=== PATIENT | male | born 1970 | race Two or more races ===

== ENCOUNTER 2016-11-19 18:35 | Emergency (ER) | payer OTHER ==
[2016-11-19 18:53] VITALS: BP 121/58; PULSE 56; TEMP 98.5; BMI 23.9
[2016-11-19 20:11] LABS: URINE APPEARANCE CLEAR; URINE BILIRUBIN NEGATIVE (NEGATIVE); URINE BLOOD NEGATIVE (NEGATIVE); URINE COLOR LTYELLOW; URINE GLUCOSE (UA) NEGATIVE (NEGATIVE); URINE KETONE NEGATIVE (NEGATIVE); URINE LEUK ESTERASE NEGATIVE (NEGATIVE); URINE NITRITE NEGATIVE (NEGATIVE); URINE PROTEIN NEGATIVE (NEGATIVE); URINE UROBILINOGEN NEGATIVE mg/dL (0.2-1.0)
--- NOTE | 2016-11-19 20:11 | PDOC ---
History of Present Illness - General History Source: Patient Exam Limitations: No Limitations - History of Present Illness Initial Comments: 11/19/16 20:13 The patient is a 46 year old male with no significant past medical history who presents to the ED with right suprapubic pain for an hour. The patient reports a sudden onset of right suprapubic pain radiating intermittently down his right leg. He reports a consant pressure like pain in his suprapubic region and a pulsating pain in his right leg. Patient states he felt nauseous secondary to the onset of pain but denies vomiting. He reports he intermittently gets sporadic pain at night time that last several minutes before resolving. Denies changes in urinary output. Denies dysuria. Denies fevers or chills. Denies any other symptoms <Paul Owens - Last Filed: 11/19/16 20:17> <Pam Bhagat - Last Filed: 11/19/16 20:38> - General Chief Complaint: Pain Stated Complaint: PAIN, ACUTE Time Seen by Provider: 11/19/16 18:58 Past History <Paul Owens - Last Filed: 11/19/16 20:17> - Past Medical History Asthma: No Cardiac Disorders: No CVA: No Disorders: Yes (ENLARGED PROSTATE) HTN: No Hypercholesterolemia: No - Immunization History Immunization Up to Date: Yes - Psycho/Social/Smoking Cessation Hx Anxiety: No Suicidal Ideation: No Smoking Status: No Smoking History: Never smoked Have you smoked in the past 12 months: No Number of Cigarettes Smoked Daily: 0 Information on smoking cessation initiated: No Hx Alcohol Use: Yes Drug/Substance Use Hx: No Substance Use Type: None <Pam Bhagat - Last Filed: 11/19/16 20:38> - Past Medical History Allergies/Adverse Reactions: Allergies Allergy/AdvReac Type Severity Reaction Status Date / Time No Known Allergies Allergy Verified 11/19/16 18:53 Home Medications: Ambulatory Orders Aspirin [ASA -] 81 mg PO DAILY 11/04/11 Naproxen [EC-Naprosyn] 725 mg PO DAILY 07/15/15 Cephalexin Monohydrate [Keflex -] 500 mg PO BID #14 capsule 10/31/15 Ibuprofen 800 mg PO TID #30 tablet 10/31/15 Review of Systems - Review of Systems Able to Perform ROS?: Yes ABD/GI: Yes: Nausea, Other (superpubic pain radiating down leg ) All Other Systems: Reviewed and Negative <Paul Owens - Last Filed: 11/19/16 20:17> *Physical Exam - Vital Signs Last Vital Signs Temp Pulse Resp BP Pulse Ox 98.5 F 56 L 16 121/58 100 11/19/16 18:46 11/19/16 18:46 11/19/16 18:46 11/19/16 18:46 11/19/16 18:46 - Physical Exam Comments: 11/19/16 20:13 GENERAL: Well-appearing, well-nourished. No apparent distress. HEENT: Normocephalic, atraumatic. PERRL, EOM intact. CARDIOVASCULAR: Normal S1, S2. Regular rate and rhythm. PULMONARY: Clear to auscultation bilaterally. ABDOMEN: - mcburneys sign, + right suprapubic pain in inguinal area, no palpable or reproducible masses. Soft, non-distended EXTREMITIES: + 5+ straight leg raise and no reproducible pain on elevation Normal ROM in all four extremities. No gross deformities. MUSCULOSKELETAL: + no spinal tenderness, no sciatic tenderness SKIN: Warm, dry. No rash NEUROLOGICAL: no neural findings, cranial nerves 2-12 intact, no sensory changes. Normal gait <Paul Owens - Last Filed: 11/19/16 20:17> - Vital Signs Last Vital Signs Temp Pulse Resp BP Pulse Ox 98.5 F 56 L 16 121/58 100 11/19/16 18:46 11/19/16 18:46 11/19/16 18:46 11/19/16 18:46 11/19/16 18:46 <Pam Bhagat - Last Filed: 11/19/16 20:38> ED Treatment Course - ADDITIONAL ORDERS Additional order review: Laboratory Results 11/19/16 20:00 Urine Color Ltyellow Urine Appearance Clear Urine pH 5.0 D Urine Protein Negative Urine Glucose (UA) Negative Urine Ketones Negative Urine Blood Negative Urine Nitrite Negative Urine Bilirubin Negative Urine Urobilinogen Negative Ur Leukocyte Esterase Negative <Paul Owens - Last Filed: 11/19/16 20:17> - RADIOLOGY Radiology Studies Ordered: Category Date Time Status HIP-RIGHT [RAD] Stat Radiology 11/19/16 19:37 Taken <Pam Bhagat - Last Filed: 11/19/16 20:38> Medical Decision Making - Medical Decision Making 11/19/16 20:00 Pt Was examined and seen by me. Medical dictation was done by medical Conceirge. Patient on exam had right inguinal tenderness with no reproducible masses or acute findings. Patient had no cva tenderness. Patient concerning for renal colic versus, hip pelvis per versus constipation since patient states goes 3-4 days without moving his bowels but denies abdominal distention and decreased flatulence. Patient ordered for urinalysis and hip and pelvis of the right side. 11/19/16 20:36 Laboratory Tests 11/19/16 20:00 Urine Ketones Negative Urine Blood Negative Ur Leukocyte Esterase Negative Hip and pelvis negative for acute findings. Patient states currently no pain and is able to the ER. Patient be discharged home with recommendations increase his fiber intake as there is noted fecal matter and gas throughout his lower abdomen. <Pam Bhagat - Last Filed: 11/19/16 20:38> *DC/Admit/Observation/Transfer - Attestations Scribe Attestion: 11/19/16 20:14 Documentation prepared by Paul Owens, acting as medical oncology physician for Emergency Dept,Physician <Paul Owens - Last Filed: 11/19/16 20:17> <Pam Bhagat - Last Filed: 11/19/16 20:38> Diagnosis at time of Disposition: Constipation Qualifiers: Constipation type: unspecified constipation type Qualified Code(s): K59.00 - Constipation, unspecified - Discharge Dispostion Disposition: HOME Condition at time of disposition: Improved - Referrals Referrals: Kamryn Garland MD [Primary Care Provider] - - Patient Instructions Printed Discharge Instructions: High-Fiber Diet Additional Instructions: Please include green leafy vegetables and high fiber foods. Please also follow up with your PCP to discuss other symptoms and/or possibly a neurologist. May return to ED if symptoms worsen
== END 2016-11-19 20:49 | disposition home or self-care (01) ==
LOC: JERFT 18:35
DX: K59.00 Constipation, unspecified (principal)
CPT/HCPCS: 73502-TC-RT; 81003; 99281-25

== ENCOUNTER 2017-05-19 11:00 | Emergency (ER) | payer SELFPAY ==
[2017-05-19 11:39] VITALS: BP 122/72; PULSE 70; TEMP 97.4; BMI 25.1
--- NOTE | 2017-05-19 11:44 | PDOC ---
History of Present Illness - General Chief Complaint: Vomiting/Diarrhea Stated Complaint: VOMITING & DIARRHEA Time Seen by Provider: 05/19/17 11:07 History Source: Patient Exam Limitations: No Limitations - History of Present Illness Initial Comments: 05/19/17 11:53 Pt presents to the ED complaining of a 24 hour history of nausea, vomiting and profuse watery diarrhea. Multiple sick contacts. Denies fever or abdominal pain. States that he is unable to tolerate PO. Denies recent international travel. Past History - Past Medical History Allergies/Adverse Reactions: Allergies Allergy/AdvReac Type Severity Reaction Status Date / Time No Known Allergies Allergy Verified 11/19/16 18:53 Home Medications: Ambulatory Orders NK [No Known Home Medication] 05/19/17 Asthma: No Cardiac Disorders: No CVA: No COPD: No Disorders: Yes (ENLARGED PROSTATE) HTN: No Hypercholesterolemia: No - Immunization History Immunization Up to Date: Yes - Suicide/Smoking/Psychosocial Hx Smoking Status: No Smoking History: Never smoked Have you smoked in the past 12 months: No Number of Cigarettes Smoked Daily: 0 Hx Alcohol Use: No Drug/Substance Use Hx: No Substance Use Type: None Review of Systems - Review of Systems Constitutional: No: Symptoms Reported, See HPI, Chills, Diaphoresis, Fever, Loss of Appetite, Night Sweats, Weakness, Weight Stable, Unintentional Wgt. Loss , Unexplained wgt Loss, Other HEENTM: No: Symptoms Reported, See HPI, Eye Pain, Blurred Vision, Tearing, Recent change in vision, Double Vision, Cataracts, Ear Pain, Ocular Prothesis, Ear Discharge, Nose Pain, Nose Congestion, Tinnitus, Nose Bleeding, Hearing Loss , Throat Pain, Throat Swelling, Mouth Pain, Dental Problems, Difficulty Swallowing, Mouth Swelling, Other Cardiac (ROS): No: Symptoms Reported, See HPI, Chest Pain, Edema, Irregular Heart Rate, Lightheadedness, Palpitations, Syncope, Chest Tightness, Other ABD/GI: Yes: Diarrhea, Nausea, Poor Appetite, Vomiting. No: Symptoms Reported, See HPI, Abdominal Distended, Abd. Pain w/ defecation, Blood Streaked Bowels, Constipated, Difficulty Swallowing, Poor Fluid Intake, Rectal Bleeding, Indigestion, Abdominal cramping, Tarry Stools, Other : No: Symptoms Reported, See HPI, Burning, Dysuria, Discharge, Frequency, Flank Pain, Hematuria, Incontinence, Pain, Urgency, Testicular Mass, Testicular Swelling, Lesions, Testicular Pain, Other Musculoskeletal: Yes: Muscle Pain All Other Systems: Reviewed and Negative *Physical Exam - Vital Signs Last Vital Signs Temp Pulse Resp BP Pulse Ox 97.4 F L 70 15 122/72 99 05/19/17 11:06 05/19/17 11:06 05/19/17 11:06 05/19/17 11:06 05/19/17 11:06 - Physical Exam General Appearance: Yes: Nourished, Appropriately Dressed. No: Apparent Distress, Disheveled, Mild Distress, Moderate Distress, Severe Distress, Alcohol on Breath, Intoxicated, Cachetic, Obese, Thin, Other HEENT: positive: Normal ENT Inspection Neck: positive: Supple Respiratory/Chest: positive: Lungs Clear, Normal Breath Sounds Cardiovascular: positive: Regular Rhythm, Regular Rate, S1, S2 Gastrointestinal/Abdominal: positive: Flat, Soft Extremity: positive: Normal Inspection Integumentary: positive: Normal Color, Dry, Warm Neurologic: positive: Fully Oriented, Alert, Normal Mood/Affect ED Treatment Course - LABORATORY CBC & Chemistry Diagram: 05/19/17 11:40 05/19/17 11:40 Medical Decision Making - Medical Decision Making 05/19/17 11:57 Pt presents to the ED complaining of vomiting and profuse watery diarrhea consistent with viral gastroenteritis. Will check labs to rule out severe dehydration or biliary disease. Will give nausea control with zofran. 05/19/17 12:50 Pt feels improved after zofran and IV fluids. Labs show slightly elevated bilirubin, but this is consistent with his prior bilirubin levels and he does not have abdominal pain or tenderness. Will instruct him to follow up with his primary care doctor. He is now tolerating PO. WIll discharge home. *DC/Admit/Observation/Transfer Diagnosis at time of Disposition: Nausea and vomiting Qualifiers: Vomiting type: unspecified Vomiting Intractability: non-intractable Qualified Code(s): R11.2 - Nausea with vomiting, unspecified - Discharge Dispostion Disposition: HOME Condition at time of disposition: Good Admit: No - Referrals Referrals: Kamryn Garland MD [Primary Care Provider] - - Patient Instructions Printed Discharge Instructions: Nausea and Vomiting-Adult Additional Instructions: you have nausea and vomiting that is most likely caused by a virus. you should return immediately to the ED for severe abdominal pain, bloody vomit or stool, if you are vomiting so much that you are unable to tolerate fluids. Your liver function tests were slightly elevated. You should follow up with your primary care doctor for additional testing. Usted tiene nausea y vomito causado por un virus. Debes regressa al ED para dolor de abdomino, vomitando edwin, o si no puedes beber sin vomitar. Los pruebas del igado son un poco altos. Talavera doctor primario debes hacer mas pruebas. - Post Discharge Activity
[2017-05-19] MEDS ORDERED: SODIUM CHLORIDE 0.9% 1000 ML INFUS.BAG IV ONE (11:45)
[2017-05-19] MEDS ORDERED: ONDANSETRON 4 MG/2 ML VIAL IVPUSH ONE (11:45)
[2017-05-19] MEDS ORDERED: ONDANSETRON 4 MG/2 ML VIAL ONE (11:49)
[2017-05-19 12:15] LABS: BASO % 0.1 % (0-2.0); HEMATOCRIT 45.4 % (35.4-49); LYMPH % 9.5 % (8-40); MCH 29.5 pg (25.7-33.7); MEAN CELL VOLUME 89.5 fl (80-96); MEAN PLT VOLUME 9.9 fl (7.5-11.1); MONO % 5.2 % (3.8-10.2); NEUT % 84.2 % (42.8-82.8); PLATELET COUNT 166 K/MM3 (134-434); RBC 5.08 M/mm3 (4.00-5.60); RDW 13.1 % (11.9-15.9); WHITE BLOOD COUNT 6.2 K/mm3 (4.0-10.8)
[2017-05-19 12:17] LABS: ALBUMIN 3.8 g/dl (3.5-5.0); ALK PHOS 56 U/L (32-92); ANION GAP 6 (8-16); BILIRUBIN,TOTAL 1.9 mg/dl (0.2-1.0); BLOOD UREA NITROGEN 18 mg/dl (7-18); CALCIUM 8.5 mg/dl (8.4-10.2); CHLORIDE 104 mmol/L (98-107); CO2 26 mmol/L (22-28); GLUCOSE,RANDOM 92 mg/dl (74-106); SGOT/AST 29 U/L (10-42); SGPT/ALT 44 U/L (10-40); SODIUM 136 mmol/L (136-145); TOT PROT 6.5 g/dl (6.4-8.3)
== END 2017-05-19 13:01 | disposition home or self-care (01) ==
LOC: FER 11:00
PROC: 3E0337Z Introduction of Electrolytic and Water Balance Substance into Peripheral Vein, Percutaneous Approach (ICD-10-PCS; principal; 2017-05-19)
PROC: 3E033GC Introduction of Other Therapeutic Substance into Peripheral Vein, Percutaneous Approach (ICD-10-PCS; 2017-05-19)
DX: R11.2 Nausea with vomiting, unspecified (principal)
CPT/HCPCS: 36415; 80053; 85025; 99282-25

== ENCOUNTER 2018-01-20 22:07 | Emergency (ER) | payer OTHER ==
[2018-01-20 22:28] VITALS: BP 120/78; PULSE 57; TEMP 97.7; BMI 23.9
--- NOTE | 2018-01-20 22:52 | PDOC ---
Attending Attestation - Resident Resident Name: Meaghan Fuentes - ED Attending Attestation I have performed the following: I have examined & evaluated the patient, The case was reviewed & discussed with the resident, I agree w/resident's findings & plan, Exceptions are as noted - HPI HPI: 01/20/18 23:30 47 yo male presents sustained a linear 2 cm laceration to the medial surface of his right second DIP 01/20/18 23:44 - Physicial Exam PE: 01/20/18 23:44 linear flapped laceration along medial surface of rt second finger ,along DIP -sensation is intact -no active bleeding at this time -cap refill < 2 sec -pt can fully extend and flex this finger -no deformity to his fingers or hand - Medical Decision Making 01/20/18 23:47 pt's tetanus is up to date skin closure with dermabond
--- NOTE | 2018-01-20 23:13 | PDOC ---
History of Present Illness - General Chief Complaint: Laceration Stated Complaint: LACERATION Time Seen by Provider: 01/20/18 22:35 - History of Present Illness Initial Comments: 47yo M with no significant PMH presenting with right hand second digit laceration. Patient reports that he was opening a can with a knife when it slipped and cut his second digit. Patient is on ASA but no anticoagulant. Denies LOC, nausea or vomiting. He endorses no acute pain focal to the area of injury. Past History - Past Medical History Allergies/Adverse Reactions: Allergies Allergy/AdvReac Type Severity Reaction Status Date / Time No Known Allergies Allergy Verified 01/20/18 22:20 Home Medications: Ambulatory Orders Azithromycin 250 mg PO DAILY #4 tablet 12/01/17 Asthma: No Cardiac Disorders: No CVA: No COPD: No Disorders: Yes (ENLARGED PROSTATE) HTN: No Hypercholesterolemia: No - Immunization History Immunization Up to Date: Yes - Suicide/Smoking/Psychosocial Hx Smoking Status: No Smoking History: Never smoked Have you smoked in the past 12 months: No Number of Cigarettes Smoked Daily: 0 Information on smoking cessation initiated: No Hx Alcohol Use: No Drug/Substance Use Hx: No Substance Use Type: None Review of Systems - Review of Systems Comments:: Constitutional: no fever, no chills Cardiovascular: no chest pain Respiratory: no cough, no shortness of breath Gastrointestinal: no abdominal pain, no nausea, no vomiting Musculoskeletal: no myalgia, no arthralgia Skin: no rash, +laceration Neurologic: no headache, no dizziness *Physical Exam - Vital Signs Last Vital Signs Temp Pulse Resp BP Pulse Ox 97.7 F 57 L 18 120/78 99 01/20/18 22:20 01/20/18 22:20 01/20/18 22:20 01/20/18 22:20 01/20/18 22:20 - Physical Exam Comments: General: Awake, alert, and fully oriented, in no acute distress Head: no signs of trauma Eyes: EOMI, sclera anicteric ENT: Moist mucus membranes, Lungs: Lungs clear, Normal breath sounds Cardio: Regular rhythm, S1 and S2 present Abdomen: Soft, nontender Extremities: Normal range of motion, Distal pulses present SKIN: Warm, Dry, normal turgor. 2.5cm linear laceration to the R. second digit overlying the lateral and palmar aspect of the distal and middle phalange; neurovascularly intact with good pulse Neurologic: Cranial nerves II through XII grossly intact. Normal speech Procedures - Laceration/Wound Repair Right Lateral Volar Finger 2nd digit Wound Length: to 2.5 cm Wound Explored: clean Wound's Depth, Shape: linear Irrigated w/ Saline: Yes Anesthesia: 2% Lidocaine Amount of Anesthetic (ccs): 2 Wound Repaired With: Dermabond *DC/Admit/Observation/Transfer Diagnosis at time of Disposition: Laceration - Discharge Dispostion Disposition: HOME Condition at time of disposition: Improved - Referrals - Patient Instructions Printed Discharge Instructions: DI for Laceration Repair Additional Instructions: You came to the ED for laceration of your right second finger. The wound was cleaned and you received dermabond. Keep the area clean. RETURN to the ED if you experience: redness or hardness around the wound, pain or tenderness, a red streak, yellow or green discharge oozing from the wound, fever or chills. - Post Discharge Activity
== END 2018-01-20 23:44 | disposition home or self-care (01) ==
LOC: JER 22:07
PROC: 0HQFXZZ Repair Right Hand Skin, External Approach (ICD-10-PCS; principal; 2018-01-20)
DX: S61.210A Laceration without foreign body of right index finger without damage to nail, initial encounter (principal); W26.0XXA Contact with knife, initial encounter; Y93.G1 Activity, food preparation and clean up; Y92.030 Kitchen in apartment as the place of occurrence of the external cause; Y99.8 Other external cause status
CPT/HCPCS: 12001; 99282-25

== ENCOUNTER 2018-04-10 08:13 | Emergency (ER) | payer OTHER ==
[2018-04-10 08:21] VITALS: BP 140/80; PULSE 69; TEMP 98.2; BMI 23.9
[2018-04-10] MEDS ORDERED: ALBUTEROL SO4 2.5/IPRATROPIUM 0.5 INH SOL 3 ML VIAL.NEB. NEB ONE (09:02)
--- NOTE | 2018-04-10 09:13 | PDOC ---
History of Present Illness - General Chief Complaint: Chest Pain Stated Complaint: CHEST PAIN Time Seen by Provider: 04/10/18 09:01 History Source: Patient Exam Limitations: No Limitations - History of Present Illness Initial Comments: 04/10/18 09:03 Patient came for evaluation of chest pain worse with deep inspiration that started this morning. States woke up the middle the night with arm pain that went across chest but this morning states cough ensued and raspy throat. [place] that he was feverish but did not take temperature. 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 Denies any chest pain or palpitations, no history of cardiac disease. States took an aspirin this morning which helped resolve some of his symptoms allowing him to return to sleep but woke up this morning still feeling uncomfortable. Timing/Duration: reports: this morning Severity: reports: mild Past History - Travel Traveled outside of the country in the last 30 days: No Close contact w/someone who was outside of country & ill: No - Past Medical History Allergies/Adverse Reactions: Allergies Allergy/AdvReac Type Severity Reaction Status Date / Time No Known Allergies Allergy Verified 04/10/18 08:17 Home Medications: Ambulatory Orders Albuterol Sulfate Inhaler - [Ventolin HFA Inhaler -] 1 - 2 inh PO Q4H #1 inhaler 04/10/18 Asthma: No Cardiac Disorders: No CVA: No COPD: No Disorders: Yes (ENLARGED PROSTATE) HTN: No Hypercholesterolemia: No - Immunization History Immunization Up to Date: Yes - Suicide/Smoking/Psychosocial Hx Smoking Status: No Smoking History: Never smoked Have you smoked in the past 12 months: No Number of Cigarettes Smoked Daily: 0 Information on smoking cessation initiated: No Hx Alcohol Use: No Drug/Substance Use Hx: No Substance Use Type: None Review of Systems - Review of Systems Able to Perform ROS?: Yes Is the patient limited Sami proficient: Yes Constitutional: Yes: Symptoms Reported, See HPI, Chills, Fever, Malaise HEENTM: Yes: Symptoms Reported, See HPI Respiratory: Yes: Symptoms reported, See HPI, Cough, Other (pleuritic chest pain ) ABD/GI: No: Symptoms Reported : No: Symptoms Reported Musculoskeletal: Yes: Symptoms Reported, See HPI, Muscle Pain Integumentary: Yes: See HPI. No: Symptoms Reported All Other Systems: Reviewed and Negative *Physical Exam - Vital Signs Last Vital Signs Temp Pulse Resp BP Pulse Ox 98.2 F 69 20 140/80 98 04/10/18 08:14 04/10/18 08:14 04/10/18 08:14 04/10/18 08:14 04/10/18 08:14 - Physical Exam General Appearance: Yes: Nourished, Appropriately Dressed, Apparent Distress, Mild Distress HEENT: positive: EOMI, MAHSA, Normal ENT Inspection, TMs Normal, Pharynx Normal, Rhinorrhea, Sinus Tenderness. negative: Normal Voice (raspy voice with congestion) Neck: positive: Supple, Lymphadenopathy (R), Lymphadenopathy (L). negative: Tender Respiratory/Chest: positive: Lungs Clear (but mildly diminished). negative: Normal Breath Sounds Gastrointestinal/Abdominal: positive: Flat, Soft. negative: Normal Bowel Sounds Musculoskeletal: positive: Normal Inspection Extremity: positive: Normal Capillary Refill, Normal Inspection Integumentary: positive: Normal Color, Dry, Warm, Pale Neurologic: positive: attendant lodging facilities II-XII NML intact, Fully Oriented, Alert, Normal Mood/ Affect, Normal Response, Motor Strength 5/5 Moderate Sedation - Procedure Monitoring Vital Signs: Procedure Monitoring Vital Signs Temperature 98.2 F 04/10/18 08:14 Pulse Rate 69 04/10/18 08:14 Respiratory Rate 20 04/10/18 08:14 Blood Pressure 140/80 04/10/18 08:14 O2 Sat by Pulse Oximetry (%) 98 04/10/18 08:14 Heart Score/ECG Review - ECG Intrepretation Rhythm: Regular Rhythm - ECG Impressions Normal ECG: Yes Non-specific ST Elevation: No Progress Note - Progress Note Progress Note: Upper respiratory infection, cleared somewhat with albuterol neb. Influenza testing is negative will discharge with ALbuterol HFA and have F/U with PMD *DC/Admit/Observation/Transfer Diagnosis at time of Disposition: URI, acute - Discharge Dispostion Disposition: HOME Condition at time of disposition: Stable Decision to Admit order: No - Prescriptions Prescriptions: Albuterol Sulfate Inhaler - [Ventolin HFA Inhaler -] 1 - 2 inh PO Q4H #1 inhaler - Referrals Referrals: Kamryn Garland MD [Primary Care Provider] - - Patient Instructions Printed Discharge Instructions: DI for Viral Upper Respiratory Infection -- Adult Additional Instructions: Rest, drink lots of fluids: Teas, water, soups, Pedialyte Saltwater gargles Steamy showers/seem to face break up mucus Avoid contact with others until fevers and cough resolved Lots of handwashing and good hygiene Continue [id number] medications for symptomatic relief Tylenol or Motrin for fever and pain Continue albuterol nebulizers every 4-6 hours for the next 2 days then as needed for continued cough Followup with private physician in one to 2 days Return to emergency department / pediatric hospital for worsened symptoms, fevers, dehydration - Post Discharge Activity Forms/Work/School Notes: Back to Work
--- NOTE | 2018-04-10 11:26 | EKG ---
Test Reason : Blood Pressure : / mmHG Vent. Rate : 065 BPM Atrial Rate : 065 BPM P-R Int : 150 ms QRS Dur : 112 ms QT Int : 404 ms P-R-T Axes : 060 022 010 degrees QTc Int : 420 ms NORMAL SINUS RHYTHM INCOMPLETE RIGHT BUNDLE BRANCH BLOCK NONSPECIFIC T WAVE ABNORMALITY ABNORMAL ECG WHEN COMPARED WITH ECG OF 15-JUL-2015 01:26, NO SIGNIFICANT CHANGE WAS FOUND Confirmed by TRISH PHELPS, ARI ([id number]) on 04/10/2018 11:25:44 AM Referred By: Confirmed By:ARI CHAMBERS MD
== END 2018-04-10 09:48 | disposition home or self-care (01) ==
LOC: JER 08:13 → JERFT 08:13
PROC: 3E0F7GC Introduction of Other Therapeutic Substance into Respiratory Tract, Via Natural or Artificial Opening (ICD-10-PCS; principal; 2018-04-10)
DX: J06.9 Acute upper respiratory infection, unspecified (principal)
CPT/HCPCS: 87804; 93005; 93010; 99281-25

== ENCOUNTER 2018-11-24 07:23 | Emergency (ER) | payer SELFPAY ==
[2018-11-24 07:50] VITALS: BP 126/72; PULSE 85; TEMP 99.1; BMI 23.9
--- NOTE | 2018-11-24 08:21 | PDOC ---
History of Present Illness - General Chief Complaint: Cold Symptoms Stated Complaint: FEVER,CONGESTION Time Seen by Provider: 11/24/18 08:05 History Source: Patient Exam Limitations: No Limitations Past History - Travel Traveled outside of the country in the last 30 days: No Close contact w/someone who was outside of country & ill: No - Past Medical History Allergies/Adverse Reactions: Allergies Allergy/AdvReac Type Severity Reaction Status Date / Time No Known Allergies Allergy Verified 11/24/18 07:47 Home Medications: Ambulatory Orders Albuterol Sulfate Inhaler - [Ventolin HFA Inhaler -] 1 - 2 inh PO Q4H #1 inhaler 04/10/18 Azithromycin [Zithromax 250mg Tablets -] 250 mg PO UTDICT #6 tab 11/24/18 Asthma: No Cardiac Disorders: No CVA: No COPD: No Disorders: Yes (ENLARGED PROSTATE) HTN: No Hypercholesterolemia: No - Immunization History Immunization Up to Date: Yes - Suicide/Smoking/Psychosocial Hx Smoking Status: No Smoking History: Never smoked Have you smoked in the past 12 months: No Number of Cigarettes Smoked Daily: 0 Hx Alcohol Use: No Drug/Substance Use Hx: No Substance Use Type: None Review of Systems - Review of Systems Able to Perform ROS?: Yes Is the patient limited Hungarian proficient: No *Physical Exam - Vital Signs Last Vital Signs Temp Pulse Resp BP Pulse Ox 99.1 F 85 18 126/72 97 11/24/18 07:48 11/24/18 07:48 11/24/18 07:48 11/24/18 07:48 11/24/18 07:48 *DC/Admit/Observation/Transfer Diagnosis at time of Disposition: URI, acute - Discharge Dispostion Disposition: HOME Condition at time of disposition: Stable Decision to Admit order: No - Prescriptions Prescriptions: Azithromycin [Zithromax 250mg Tablets -] 250 mg PO UTDICT #6 tab - Referrals Referrals: Kamryn Garland MD [Primary Care Provider] - - Patient Instructions Printed Discharge Instructions: DI for Viral Upper Respiratory Infection -- Adult Additional Instructions: You have an upper respiratory infection, or the common cold. Your strep testing was negative today. Please take Motrin 800 mg every 8 hours as needed for pain not to exceed 3000 mg a day. Drink plenty of fluids. Cough drops and warm tea may help your symptoms as well. Please follow up with her primary care doctor this week. Return to the emergency department if you have difficulty breathing, shortness of breath, worsening pain, nausea, vomiting or if you have any changes in your symptoms. Tiene pantera infeccin de las vas respiratorias superiores o resfriado comn. [employer] prueba de estreptococo fue negativa hoy. Marie el paquete Z segn las indicaciones. Tiene diarrea. Evite todos los productos lcteos hasta 48 horas despus de que el vmito / diarrea se haya resuelto. Coma pantera dieta blanda que incluya salsa de manzana, tostadas, pltanos y arroz simple [place] muchos lquidos, incluidos pedialyte, jugos diluidos y agua. Gregory un seguimiento con cornell mdico de atencin primaria esta semana Regrese al servicio de urgencias si desarrolla fiebre, dolor abdominal, empeoramiento del vmito o si tiene algn cambio en arvind sntomas. Print Language: LATVIAN - Post Discharge Activity
[2018-11-24] MEDS ORDERED: IBUPROFEN 400 MG TABLET (FP) PO ONE ×2 (08:51→09:05)
[2018-11-24] MEDS ORDERED: ACETAMINOPHEN 325 MG TABLET (FP) PO ONE (08:51)
[2018-11-24] MEDS ORDERED: ACETAMINOPHEN 325 MG TABLET (FP) ONE (09:05)
== END 2018-11-24 10:07 | disposition home or self-care (01) ==
LOC: JERFT 07:23
DX: J06.9 Acute upper respiratory infection, unspecified (principal); B97.89 Other viral agents as the cause of diseases classified elsewhere
CPT/HCPCS: 87070; 87880; 99281-25

== ENCOUNTER 2019-05-25 09:55 | Emergency (ER) | payer OTHER ==
[2019-05-25 10:10] VITALS: BP 125/87; PULSE 57; TEMP 98.5; BMI 23.6
[2019-05-25] MEDS ORDERED: ACETAMINOPHEN 1000 MG/100 ML VIAL (NON FORMULARY) IVPB ONE (10:21)
[2019-05-25] MEDS ORDERED: SODIUM CHLORIDE 0.9% 500 ML INFUS.BAG IV ONE (10:21)
--- NOTE | 2019-05-25 10:21 | PDOC ---
History of Present Illness - General Chief Complaint: Pain Stated Complaint: LEFT FLANK PAIN Time Seen by Provider: 05/25/19 10:01 - History of Present Illness Initial Comments: Edgar Mendenhall is a 49yo man with no chronic medical conditions, h/o prior kidney stones, who presents with left flank pain for 2-3 days that has now moved to include the left upper abdomen. The pain has also He has not noticed any fevers/chills, dysuria, hematuria, frequency, nausea/vomiting, diarrhea, or other symptoms. He states that the pain is worse with movement. He coughed this morning, and the pain was so severe that he could not deal with it at home and came to the ED. He has not taken any pain medication today. He says that this does not feel exactly like his previous kidney stones as the pain today is more severe. He does not remember any injury or heavy lifting prior to onset of pain , but he is not sure. Past History - Past Medical History Allergies/Adverse Reactions: Allergies Allergy/AdvReac Type Severity Reaction Status Date / Time No Known Allergies Allergy Verified 05/25/19 09:56 Home Medications: Ambulatory Orders Albuterol Sulfate Inhaler - [Ventolin HFA Inhaler -] 1 - 2 inh PO Q4H #1 inhaler 04/10/18 Azithromycin [Zithromax 250mg Tablets -] 250 mg PO UTDICT #6 tab 11/24/18 Asthma: No Cardiac Disorders: No CVA: No COPD: No Disorders: Yes (ENLARGED PROSTATE) HTN: No Hypercholesterolemia: No Kidney Stones: Yes - Immunization History Immunization Up to Date: Yes - Psycho Social/Smoking Cessation Hx Smoking Status: No Smoking History: Never smoked Have you smoked in the past 12 months: No Number of Cigarettes Smoked Daily: 0 Information on smoking cessation initiated: No Hx Alcohol Use: ("social") Drug/Substance Use Hx: No Substance Use Type: None Review of Systems - Review of Systems Comments:: General: No fevers, no chills, no weight or appetite change, no malaise HEENT: No changes in vision, no changes in hearing, no congestion, no sore throat CV: No chest pain, no palpitations, no LE edema Pulm: No SOB, no cough, no wheezing GI: No nausea or vomiting, no change in bowel habits, no melena : No frequency, no urgency, no dysuria. +L flank pain Musc: No back pain, no joint swelling, no recent injury Skin: No rash, no lesions, no erythema Endo: No excessive thirst, no heat/cold intolerance Heme: No unusual bruising or bleeding, no swollen glands Neuro: No syncope, no numbness/tingling, no focal weakness Vasc: No claudication Psych: No recent change in mood, no SI or HI *Physical Exam - Vital Signs Last Vital Signs Temp Pulse Resp BP Pulse Ox 98.5 F 57 L 18 125/87 100 05/25/19 09:55 05/25/19 09:55 05/25/19 09:55 05/25/19 09:55 05/25/19 09:55 - Physical Exam General: Uncomfortable but in no acute distress HEENT: Atraumatic, PERRL, EOMI, MMM, voice normal, normal neck ROM Cards: RRR, no murmur appreciated Pulm: Comfortable on room air, clear to auscultation bilaterally Abd: Soft, nondistended. Mild LUQ TTP. No rigidity or guarding. : +Left CVA TTP Ext: Atraumatic. No LE edema. ROM intact. WWP Skin: Normal color, no rashes or lesions Neuro: A&Ox3, CN grossly intact, normal speech, motor/sensory grossly intact and symmetric Psych: Mood appropriate to situation ED Treatment Course - LABORATORY CBC & Chemistry Diagram: 05/25/19 10:30 05/25/19 10:30 Medical Decision Making - Medical Decision Making 05/25/19 10:21 Edgar Mendenhall is a 49yo man with no chronic medical conditions, h/o prior kidney stones, who presents with left flank pain for 2-3 days that has now moved to include the left upper abdomen. He denies any associated symptoms, urinary complaints, or history of injury. - Most likely kidney stone or musculoskeletal pain. Less likely pyelonephritis given no nausea, vomiting, fever. Cannot exclude AAA, PUD, gastritis, though less likely given no associated symptoms or h/o HTN or smoking. Unlikely ACS given no chest pain, SOB or exertional component, or comorbidities - CBC, CMP, UA, UCx - IVF, acetaminophen - Will likely need CT pending UA and creatinine 05/25/19 12:04 - Labs reviewed, no concerning abnormalities - Pt has not been able to provide urine sample - CT abd/pelvis completed for evaluation. Reviewed in ED. Stone noted at [facility]. Radiology report pending - Will most likely be able to d/c home with urology follow up. 05/25/19 13:20 - CT without definitive stone per radiology report - Pain may be musculoskeletal - Discussed home pain control, follow up with PMD and urology. Pt understands and agrees with the plan, feels comfortable going home. Discussed with Dr Medina Fairbanks PGY2 Discharge - Discharge Information Problems reviewed: Yes Clinical Impression/Diagnosis: Kidney stone on left side Condition: Stable Disposition: HOME - Follow up/Referral Referrals: Kamryn Garland MD [Primary Care Provider] - Cesar Parks MD [Staff Physician] - - Patient Discharge Instructions Patient Printed Discharge Instructions: DI for Musculoskeletal Pain Additional Instructions: Discharge Instructions: You were seen in the emergency department for back pain. This is most likely due to a muscle strain. Home Care and Follow Up: - You may use over the counter medications as needed for pain at home. 650- 1000mg acetaminophen (Tylenol) or 600mg ibuprofen (Motrin or Advil) can be used every 6-8 hours. If needed for continued pain, these medications may be alternated every 3-4 hours. For example, if you take ibuprofen at 9am, you may take acetaminophen at noon, ibuprofen at 3pm, etc. - It is strongly recommended that you take ibuprofen with food to help prevent stomach irritation. - You may buy a numbing patch that contains lidocaine (the patch is 4% lidocaine ) that can be placed over the areas of greatest pain. The lidocaine patch may be placed for 12 hours then removed for 12 hours. - Try using an ice pack for 20 minutes every hour or a heating pad for additional pain control. These should NOT be used over the lidocaine patch, but you may place them over the areas of pain while the patch is off. - Do not stop moving around. As much as you can tolerate, continue to do light exercise and stretching exercises. Increase your activity level as much as you can tolerate daily. - If your pain does not improve over the next week, please see your regular doctor for follow up. - Seek immediate medical care if you have significant worsening of your symptoms , inability to move, nausea/vomiting or change in bowel habits, fever to 101F or higher, or any other medical emergency. - Post Discharge Activity
[2019-05-25] MEDS ORDERED: ACETAMINOPHEN INJECTION 100 ML IVPB ONE (10:23)
[2019-05-25 10:42] LABS: BASO % 1.4 % (0-2.0); EOS % 0.7 % (0-4.5); HEMATOCRIT 47.7 % (35.4-49); HEMOGLOBIN 15.8 GM/dl (11.7-16.9); LYMPH % 17.9 % (8-40); MCH 30.5 pg (25.7-33.7); MCHC 33.1 g/dl (32.0-35.9); MEAN PLT VOLUME 9.2 fl (7.5-11.1); MONO % 5.5 % (3.8-10.2); NEUT % 74.5 % (42.8-82.8); PLATELET COUNT 234 K/MM3 (134-434); RBC 5.19 M/mm3 (4.00-5.60); RDW 13.4 % (11.9-15.9); WHITE BLOOD COUNT 9.9 K/mm3 (4.0-10.8)
--- NOTE | 2019-05-25 10:44 | PDOC ---
Attending Attestation - Resident Resident Name: Aleksandra Fairbanks - ED Attending Attestation I have performed the following: I have examined & evaluated the patient, The case was reviewed & discussed with the resident, I agree w/resident's findings & plan, Exceptions are as noted - HPI HPI: 05/25/19 18:16 49 years old no past medical history presents with left flank pain pain for 2 to 3 days worse with movement history of kidney stones - Physicial Exam PE: 05/25/19 18:16 Works in the kitchen Vitals: Triage Vital signs reviewed General Appearance: No acute distress, well nourished well developed, Cardiac: Regular rate and rhythym, no murmurs, no rubs, no gallops, Lungs: Clear to auscultation bilateral, good air movement bilaterally, Abdomen: Soft, non distended, normal bowel sounds, non tender to palpation MSK:left-sided CVA tenderness to palpation Extremities: Full range of motion to all extremities, no cyanosis, clubbing, or edema Skin: Warm and dry, no rashes or lesions, no rash, no petechiae Psych: Normal mood, normal affect - Medical Decision Making 05/25/19 18:24 49 years old labs normal urine normal status post pain meds patient feels much better CT demonstrates no acute pathology History examination is consistent with musculoskeletal back discomfort very reproducible worse with change in position Patient will follow-up with his primary care doctor this week or return to ED for any severe worsening symptoms or for any concerns.
[2019-05-25 10:53] LABS: ALBUMIN 3.8 g/dl (3.4-5.0); BILIRUBIN,TOTAL 1.8 mg/dl (0.2-1); CALCIUM 8.9 mg/dl (8.5-10); POTASSIUM 4.2 mmol/L (3.5-5.1)
[2019-05-25] MEDS ORDERED: KETOROLAC TROMETHAMINE 30 MG/1 ML VIAL IVPUSH ONE (12:06)
[2019-05-25] MEDS ORDERED: KETOROLAC TROMETHAMINE 30 MG/1 ML VIAL ONE (12:09)
== END 2019-05-25 13:30 | disposition home or self-care (01) ==
LOC: FER 09:55
PROC: 3E033NZ Introduction of Analgesics, Hypnotics, Sedatives into Peripheral Vein, Percutaneous Approach (ICD-10-PCS; principal; 2019-05-25)
PROC: 3E0333Z Introduction of Anti-inflammatory into Peripheral Vein, Percutaneous Approach (ICD-10-PCS; 2019-05-25)
DX: N20.0 Calculus of kidney (principal)
CPT/HCPCS: 36415; 74176-TC; 80053; 81003; 81015; 85025; 87086; 96374; 96375; 99284-25; J0131

== ENCOUNTER 2019-05-27 10:04 | Emergency (ER) | payer OTHER ==
[2019-05-27 10:31] VITALS: BP 122/80; PULSE 65; TEMP 98.4; BMI 24.7
[2019-05-27] MEDS ORDERED: KETOROLAC TROMETHAMINE 30 MG/1 ML VIAL IM ONE (11:37)
[2019-05-27] MEDS ORDERED: METHOCARBAMOL 500 MG TABLET PO ONE (11:37)
[2019-05-27] MEDS ORDERED: KETOROLAC TROMETHAMINE 30 MG/1 ML VIAL ONE (11:40)
[2019-05-27] MEDS ORDERED: METHOCARBAMOL 500 MG TABLET ONE (11:40)
--- NOTE | 2019-05-27 11:42 | PDOC ---
History of Present Illness - General Chief Complaint: Injury Stated Complaint: LOWER BACK PAIN Time Seen by Provider: 05/27/19 11:32 History Source: Patient Exam Limitations: Clinical Condition - History of Present Illness Initial Comments: 05/27/19 11:38 Patient with no significant past medical history present with complaint of persistent left lower back pain status post heavy lifting 3 days ago which patient reports felt a stretch in the back after lifting but had no pain until the following day when he started having pain. Patient was seen in transfer emergency room 2 days ago for symptoms and blood work and CT done was normal results and discharged with naproxen but patient did not take it. Patient reported was seen by neurology yesterday for symptoms and advised to take naproxen but did not take it today as reports still having pain. Patient reported increased pain with movement. Denies numbness or tingling sensation or radiculopathy. Occurred: reports: other (3 days ) Past History - Past Medical History Allergies/Adverse Reactions: Allergies Allergy/AdvReac Type Severity Reaction Status Date / Time No Known Allergies Allergy Verified 05/25/19 09:56 Home Medications: Ambulatory Orders Albuterol Sulfate Inhaler - [Ventolin HFA Inhaler -] 1 - 2 inh PO Q4H #1 inhaler 04/10/18 Azithromycin [Zithromax 250mg Tablets -] 250 mg PO UTDICT #6 tab 11/24/18 Methocarbamol [Robaxin -] 500 mg PO BID PRN #14 tablet 05/27/19 Methylprednisolone [Medrol Dose Edwin] 4 mg PO ASDIR #21 tablet 05/27/19 Asthma: No Cardiac Disorders: No CVA: No COPD: No Disorders: Yes (ENLARGED PROSTATE) HTN: No Hypercholesterolemia: No Kidney Stones: Yes - Immunization History Immunization Up to Date: Yes - Psycho Social/Smoking Cessation Hx Smoking Status: No Smoking History: Never smoked Have you smoked in the past 12 months: No Number of Cigarettes Smoked Daily: 0 Information on smoking cessation initiated: No Hx Alcohol Use: No Drug/Substance Use Hx: No Substance Use Type: None Review of Systems - Review of Systems Able to Perform ROS?: Yes Is the patient limited [place] proficient: No Constitutional: No: Chills, Fever, Malaise HEENTM: No: Symptoms Reported, See HPI, Eye Pain, Blurred Vision, Tearing, Recent change in vision, Double Vision, Cataracts, Ear Pain, Ocular Prothesis, Ear Discharge, Nose Pain, Nose Congestion, Tinnitus, Nose Bleeding, Hearing Loss , Throat Pain, Throat Swelling, Mouth Pain, Dental Problems, Difficulty Swallowing, Mouth Swelling, Other Respiratory: No: Symptoms reported, See HPI, Cough, Orthopnea, Shortness of Breath, SOB with Exertion, SOB at Rest, Stridor, Wheezing, Productive cough, Hemoptysis, Other Cardiac (ROS): No: Symptoms Reported, See HPI, Chest Pain, Edema, Irregular Heart Rate, Lightheadedness, Palpitations, Syncope, Chest Tightness, Other ABD/GI: No: Symptoms Reported, See HPI, Nausea, Vomiting Musculoskeletal: Yes: Symptoms Reported, See HPI, Back Pain, Muscle Pain (left side back pain) All Other Systems: Reviewed and Negative *Physical Exam - Vital Signs Last Vital Signs Temp Pulse Resp BP Pulse Ox 98.4 F 65 16 122/80 97 05/27/19 10:29 05/27/19 10:29 05/27/19 10:29 05/27/19 10:29 05/27/19 10:29 - Physical Exam 05/27/19 11:40 GENERAL: Well developed, well nourished. Awake and alert in mild acute distress. CARDIOVASCULAR: Regular rate and rhythm. No murmurs, rubs, or gallops. PULMONARY: No evidence of respiratory distress. Lungs clear to auscultation bilaterally. No wheezing, rales or rhonchi. ABDOMINAL: Soft. Non-tender. Non-distended. No rebound or guarding. No organomegaly. Normoactive bowel sounds MUSCULOSKELETAL : Moderate tenderness to left paravertebral muscle of lumbar spine of L2-L5. No midline tenderness. No radiculopathy SKIN: Warm and dry. Normal capillary refill. No rashes. No jaundice. NEUROLOGICAL: Alert, awake, appropriate. No motor deficits in the lower extremities. Gait is normal without ataxia. PSYCHIATRIC: Cooperative. Good eye contact. Appropriate mood and affect. General Appearance: Yes: Nourished, Appropriately Dressed, Mild Distress Medical Decision Making - Medical Decision Making 05/27/19 11:39 Patient with no significant past medical history present with complaint of persistent left lower back pain status post heavy lifting 3 days ago which patient reports felt a stretch in the back after lifting but had no pain until the following day when he started having pain. Patient was seen in transfer emergency room 2 days ago for symptoms and blood work and CT done was normal results and discharged with naproxen but patient did not take it. Patient reported was seen by neurology yesterday for symptoms and advised to take naproxen but did not take it today as reports still having pain. Patient reported increased pain with movement. Denies numbness or tingling sensation or radiculopathy. Exam significant for moderate tenderness to left paravertebral muscle of lumbar spine of L2-L5. No midline tenderness. Patient symptoms likely back strain. Toradol 30 mg IM ordered for pain and Robaxin 1000mg ordered for spasm. Patient stable for discharge to continue prescribed naproxen medication and will add Robaxin muscle relaxer for pain with orthopedics follow-up as needed Discharge - Discharge Information Problems reviewed: Yes Clinical Impression/Diagnosis: Lumbago without sciatica Qualifiers: Chronicity: acute Back pain laterality: left Qualified Code(s): M54.5 - Low back pain Condition: Stable Disposition: HOME - Admission No - Additional Discharge Information Prescriptions: Methocarbamol [Robaxin -] 500 mg PO BID PRN #14 tablet PRN Reason: Back Pain Methylprednisolone [Medrol Dose Edwin] 4 mg PO ASDIR #21 tablet - Follow up/Referral Referrals: Kamryn Garland MD [Primary Care Provider] - - Patient Discharge Instructions Patient Printed Discharge Instructions: DI for Back Strain or Sprain Additional Instructions: Take prescribed medication as prescribed for pain as symptoms likely from muscle strain. Apply heat to lower back 2-3 times a day as needed for pain. Follow-up with orthopedics if symptoms persist for more than 3 days - Post Discharge Activity
== END 2019-05-27 11:48 | disposition home or self-care (01) ==
LOC: JERFT 10:04
PROC: 3E0233Z Introduction of Anti-inflammatory into Muscle, Percutaneous Approach (ICD-10-PCS; principal; 2019-05-27)
DX: M54.5 Low back pain (principal); N40.0 Benign prostatic hyperplasia without lower urinary tract symptoms; N20.0 Calculus of kidney
CPT/HCPCS: 99281-25

== ENCOUNTER 2021-07-20 19:50 | Inpatient (IN) | payer OTHER ==
[2021-07-20 20:02] VITALS: BP 147/80; PULSE 81; TEMP 98; BMI 25.4
[2021-07-20] MEDS ORDERED: ACETAMINOPHEN 325 MG TABLET (FP) PO ONE (21:03)
[2021-07-20] MEDS ORDERED: ACETAMINOPHEN 325 MG TABLET (FP) ONE (21:05)
[2021-07-20 21:16] LABS: BASO % 0.5 % (0-2.0); EOS % 1.4 % (0-4.5); HEMATOCRIT 40.9 % (35.4-49); LYMPH % 28.7 % (8-40); MCH 30.1 pg (25.7-33.7); MCHC 34.2 g/dl (32.0-35.9); MEAN CELL VOLUME 87.9 fl (80-96); MEAN PLT VOLUME 8.1 fl (7.5-11.1); MONO % 7.8 % (3.8-10.2); NEUT % 61.6 % (42.8-82.8); PLATELET COUNT 193 10^3/uL (134-434); RBC 4.65 M/mm3 (4.00-5.60)
[2021-07-20 21:25] LABS: INR 0.92 (0.83-1.09); PROTHROMBIN TIME (PATIENT) 10.6 SEC (9.7-13.0)
[2021-07-20 21:42] LABS: CALCIUM 8.4 mg/dL (8.5-10.1)
[2021-07-20 21:43] LABS: ALBUMIN 3.2 g/dl (3.4-5.0); BLOOD UREA NITROGEN 15.4 mg/dL (7-18)
[2021-07-20 21:46] LABS: CREATININE 1.4 mg/dL (0.55-1.3)
[2021-07-20 21:47] LABS: BILIRUBIN,TOTAL 0.5 mg/dL (0.2-1); TOT PROT 6.7 g/dl (6.4-8.2)
[2021-07-20] MEDS ORDERED: ASPIRIN 81 MG CHEWABLE TABLETS PO ONE (22:08)
[2021-07-20] MEDS ORDERED: SODIUM CHLORIDE 0.9% 500 ML INFUS.BAG IV ONE (22:09)
[2021-07-20] MEDS ORDERED: ASPIRIN 81 MG CHEWABLE TABLETS ONE (23:02)
== END 2021-07-23 02:30 | disposition left against medical advice (07) | DRG 469 ==
LOC: JER 19:50 → JERBED 07-21 00:22
PROVIDERS: ADMIT Hospitalist; ATTEND Hospitalist
DX: N17.9 Acute kidney failure, unspecified (principal); R07.89 Other chest pain; E78.5 Hyperlipidemia, unspecified; I45.10 Unspecified right bundle-branch block; Z53.29 Procedure and treatment not carried out because of patient's decision for other reasons; N40.0 Benign prostatic hyperplasia without lower urinary tract symptoms
CPT/HCPCS: 36415; 71046-TC-FY; 80053; 83735; 84484; 85025; 85610; 85730; 93005; 93010; 99285-25; C9803-CS; U0003; U0005